=== PATIENT | male | born 2000 | race Caucasian/White ===

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

== ENCOUNTER 2023-04-25 22:09 | Emergency (ER) | payer SELFPAY ==
[2023-04-25 22:10] VITALS: BMI 25.1
--- NOTE | 2023-04-25 22:11 | CT_ITS ---
PROCEDURE INFORMATION: Exam: CT Lumbar Spine Without Contrast Exam date and time: 04/25/2023 10:41 PM Age: 22 years old Clinical indication: Injury or trauma; Fall; Additional info: Fall from 40 feet TECHNIQUE: Imaging protocol: Computed tomography of the lumbar spine without contrast. Radiation optimization: All CT scans at this facility use at least one of these dose optimization techniques: automated exposure control; mA and/or kV adjustment per patient size (includes targeted exams where dose is matched to clinical indication); or iterative reconstruction. REPORTING DATA: Count of CT and Cardiac NM exams in prior 12 months: This patient has received 0 known CTs and 0 known cardiac nuclear medicine studies in the 12 months prior to the current study. COMPARISON: CT THORACIC SPINE WO CON 25/04/2023 22:37 FINDINGS: Bones/joints: No acute fracture. Normal alignment. No significant disc bulge or herniation. No severe spinal canal stenosis. No significant neural foraminal narrowing. Soft tissues: Unremarkable. Other findings: Please see separate report for abdomen/pelvis. IMPRESSION: No acute fracture or malalignment of the lumbar spine.
--- NOTE | 2023-04-25 22:11 | CT_ITS ---
PROCEDURE INFORMATION: Exam: CT Thoracic Spine Without Contrast Exam date and time: 04/25/2023 10:37 PM Age: 22 years old Clinical indication: Injury or trauma; Fall; Additional info: Fall from 40 feet TECHNIQUE: Imaging protocol: Computed tomography of the thoracic spine without contrast. Radiation optimization: All CT scans at this facility use at least one of these dose optimization techniques: automated exposure control; mA and/or kV adjustment per patient size (includes targeted exams where dose is matched to clinical indication); or iterative reconstruction. REPORTING DATA: Count of CT and Cardiac NM exams in prior 12 months: This patient has received 0 known CTs and 0 known cardiac nuclear medicine studies in the 12 months prior to the current study. COMPARISON: CT CERVICAL SPINE WO CON 25/04/2023 22:35 FINDINGS: Bones/joints: Acute T6 superior endplate fracture. Subtle T9 compression fracture. Soft tissues: Unremarkable. Other findings: Please see separate report for CT chest. IMPRESSION: Acute T6 superior endplate fracture. Subtle T9 compression fracture.
--- NOTE | 2023-04-25 22:11 | CT_ITS ---
PROCEDURE INFORMATION: Exam: CT Head Without Contrast Exam date and time: 04/25/2023 10:33 PM Age: 22 years old Clinical indication: Injury or trauma; Fall; Additional info: Fall from 40 feet TECHNIQUE: Imaging protocol: Computed tomography of the head without contrast. Radiation optimization: All CT scans at this facility use at least one of these dose optimization techniques: automated exposure control; mA and/or kV adjustment per patient size (includes targeted exams where dose is matched to clinical indication); or iterative reconstruction. REPORTING DATA: Count of CT and Cardiac NM exams in prior 12 months: This patient has received 0 known CTs and 0 known cardiac nuclear medicine studies in the 12 months prior to the current study. COMPARISON: No relevant prior studies available. FINDINGS: Brain: No acute abnormality. No edema or mass effect. No hemorrhage. Cerebral ventricles: No acute abnormality. No significant ventriculomegaly. Paranasal sinuses: Inferior right maxillary sinus mucous retention cyst. Mastoid air cells: No acute abnormality. No significant mastoid effusion. Bones/joints: No acute osseous abnormality. No acute fracture. Soft tissues: No significant soft tissue abnormalities. IMPRESSION: No evidence of acute intracranial abnormality.
--- NOTE | 2023-04-25 22:11 | CT_ITS ---
PROCEDURE INFORMATION: Exam: CT Abdomen And Pelvis With Contrast Exam date and time: 04/25/2023 10:44 PM Age: 22 years old Clinical indication: Injury or trauma; Fall; Additional info: Fall from 40 feet TECHNIQUE: Imaging protocol: Computed tomography of the abdomen and pelvis with contrast. Radiation optimization: All CT scans at this facility use at least one of these dose optimization techniques: automated exposure control; mA and/or kV adjustment per patient size (includes targeted exams where dose is matched to clinical indication); or iterative reconstruction. Contrast material: ISOVUE; Contrast volume: 75 ml; Contrast route: IV; REPORTING DATA: Count of CT and Cardiac NM exams in prior 12 months: This patient has received 0 known CTs and 0 known cardiac nuclear medicine studies in the 12 months prior to the current study. COMPARISON: CT ABDOMEN PELVIS W CON 05/14/2021 18:08 FINDINGS: Liver: Normal. No mass. Gallbladder and bile ducts: Normal. No calcified stones. No ductal dilation. Pancreas: Normal. No ductal dilation. Spleen: Normal. No splenomegaly. Adrenal glands: Normal. No mass. Kidneys and ureters: Normal. No hydronephrosis. Stomach and bowel: Unremarkable. No obstruction. No mucosal thickening. Appendix: No evidence of appendicitis. Intraperitoneal space: Unremarkable. No free air. No significant fluid collection. Vasculature: Unremarkable. No abdominal aortic aneurysm. Lymph nodes: Unremarkable. No enlarged lymph nodes. Urinary bladder: Unremarkable as visualized. Reproductive: Unremarkable as visualized. Bones/joints: Unremarkable. No acute fracture. Soft tissues: Unremarkable. Other findings: Please see separate report for CT chest. IMPRESSION: No acute intra-abdominal or intrapelvic organ injury.
--- NOTE | 2023-04-25 22:11 | CT_ITS ---
PROCEDURE INFORMATION: Exam: CT Chest With Contrast; Diagnostic Exam date and time: 04/25/2023 10:44 PM Age: 22 years old Clinical indication: Injury or trauma; Fall; Additional info: Fall from 40 feet TECHNIQUE: Imaging protocol: Diagnostic computed tomography of the chest with contrast. Radiation optimization: All CT scans at this facility use at least one of these dose optimization techniques: automated exposure control; mA and/or kV adjustment per patient size (includes targeted exams where dose is matched to clinical indication); or iterative reconstruction. Contrast material: ISOVUE; Contrast volume: 75 ml; Contrast route: IV; REPORTING DATA: Count of CT and Cardiac NM exams in prior 12 months: This patient has received 0 known CTs and 0 known cardiac nuclear medicine studies in the 12 months prior to the current study. COMPARISON: CR XR CHEST PORTABLE 25/04/2023 22:01 FINDINGS: Lungs: Unremarkable. No consolidation. No masses. Pleural spaces: Unremarkable. No pneumothorax. No pleural effusion. Heart: Unremarkable. No cardiomegaly. No pericardial effusion. Lymph nodes: Unremarkable. No enlarged lymph nodes. Vasculature: Unremarkable. No aortic aneurysm. Bones/joints: Unremarkable. No acute fracture. Soft tissues: Unremarkable. Other findings: Please see separate report for abdomen/pelvis. IMPRESSION: No acute intrathoracic organ injury.
--- NOTE | 2023-04-25 22:11 | CT_ITS ---
PROCEDURE INFORMATION: Exam: CT Cervical Spine Without Contrast Exam date and time: 04/25/2023 10:35 PM Age: 22 years old Clinical indication: Injury or trauma; Fall; Additional info: Fall from 40 feet TECHNIQUE: Imaging protocol: Computed tomography of the cervical spine without contrast. Radiation optimization: All CT scans at this facility use at least one of these dose optimization techniques: automated exposure control; mA and/or kV adjustment per patient size (includes targeted exams where dose is matched to clinical indication); or iterative reconstruction. REPORTING DATA: Count of CT and Cardiac NM exams in prior 12 months: This patient has received 0 known CTs and 0 known cardiac nuclear medicine studies in the 12 months prior to the current study. COMPARISON: CT HEAD/BRAIN WO CON 04/25/2023 10:33 PM FINDINGS: Bones/joints: No acute fracture. Normal alignment and vertebral body height. Multilevel findings: No acute findings. No significant spinal stenosis. Lungs: No significant or acute abnormality of the visualized lung apices. Soft tissues: No significant soft tissue abnormalities. IMPRESSION: No evidence of acute fracture or subluxation.
--- NOTE | 2023-04-25 22:12 | XR_ITS ---
PROCEDURE INFORMATION: Exam: XR Chest Exam date and time: 04/25/2023 10:01 PM Age: 22 years old Clinical indication: Injury or trauma; Patient HX: Fall from 40ft TECHNIQUE: Imaging protocol: Radiologic exam of the chest. Views: 1 view. COMPARISON: CT ABDOMEN PELVIS W CON 05/14/2021 18:08 FINDINGS: Lungs: Unremarkable. No consolidation. Pleural spaces: Unremarkable. No pleural effusion. No pneumothorax. Heart/Mediastinum: Unremarkable. No cardiomegaly. Bones/joints: Unremarkable. IMPRESSION: No acute intrathoracic organ injury.
--- NOTE | 2023-04-25 22:12 | XR_ITS ---
PROCEDURE INFORMATION: Exam: XR Pelvis Exam date and time: 04/25/2023 10:46 PM Age: 22 years old Clinical indication: Injury or trauma; Fall TECHNIQUE: Imaging protocol: Radiologic exam of the pelvis. Views: 1 or 2 view. COMPARISON: CT ABDOMEN PELVIS W CON 25/04/2023 22:44 FINDINGS: Bones/joints: No acute fracture or dislocation. Soft tissues: Unremarkable. IMPRESSION: No acute fracture or dislocation.
[2023-04-25 22:14] VITALS: BP 145/63; PULSE 111; RESP 16; TEMP 36.6; O2SAT 98; BMI 22.3
--- NOTE | 2023-04-25 22:14 | PC.NURSE ---
2199 arrived to facility. 2201 trauma alert called re: 40 foot fall 2207:trauma alert cancelled. manual bp 172/76
[2023-04-25 22:20] LABS: Basophils % 0.3 % (0.1-2.0); Eosinophils # 0.1 K/mm3 (0.0-0.4); Eosinophils % 0.5 % (0.1-12.0); Hemoglobin 15.9 g/dL (14.1-18.0); Lymphocytes # 1.6 K/mm3 (0.7-4.5); Lymphocytes % 12.1 % (10-50); Mean Corpuscular HGB Conc 33.8 g/dL (31.8-35.4); Mean Corpuscular Hemoglobin 29.6 pg (27.0-31.2); Mean Corpuscular Volume 87.7 fl (80-94); Mean Platelet Volume 8.7 fl (7.4-10.4); Monocytes # 0.9 K/mm3 (0.1-1.0); Neutrophils # 10.7 K/mm3 (1.8-7.8); Neutrophils % 80.1 % (37.0-80.0); Platelet Count 236 K/mm3 (142-424); Red Blood Count 5.36 M/mm3 (4.60-6.20); Red Cell Distribution Width 12.8 % (11.5-17.5); White Blood Count 13.4 K/mm3 (4.5-13.0)
[2023-04-25 22:23] VITALS: BP 172/76; PULSE 70; RESP 16; TEMP 36.6; O2SAT 98
--- NOTE | 2023-04-25 22:24 | XR_ITS ---
PROCEDURE INFORMATION: Exam: XR Right Wrist Exam date and time: 04/25/2023 10:46 PM Age: 22 years old Clinical indication: Injury or trauma; Fall TECHNIQUE: Imaging protocol: Radiologic exam of the right wrist. Views: 3 or more views. COMPARISON: No relevant prior studies available. FINDINGS: Bones/joints: No acute fracture or dislocation. Soft tissues: Normal. IMPRESSION: No acute fracture or dislocation.
--- NOTE | 2023-04-25 22:24 | XR_ITS ---
PROCEDURE INFORMATION: Exam: XR Left Wrist Exam date and time: 04/25/2023 10:46 PM Age: 22 years old Clinical indication: Injury or trauma; Fall TECHNIQUE: Imaging protocol: Radiologic exam of the left wrist. Views: 3 or more views. COMPARISON: No relevant prior studies available. FINDINGS: Bones/joints: Nondisplaced distal radial fracture with intra-articular component in the radiocarpal joint. Mildly displaced ulnar styloid process fracture. Soft tissues: Hematoma around the fractures. IMPRESSION: 1. Nondisplaced distal radial fracture with intra-articular component in the radiocarpal joint. 2. Mildly displaced ulnar styloid process fracture.
[2023-04-25 22:25] LABS: Chloride 101 mmol/L (98-107); Sodium 139 mmol/L (136-145)
[2023-04-25 22:27] LABS: Blood Urea Nitrogen 16 mg/dl (9-20)
[2023-04-25 22:28] LABS: Alanine Aminotransferase 32 U/L (12-78); Albumin Level 4.6 g/dl (3.5-5.0); Albumin/Globulin Ratio 1.7 (1.1-1.8); Alkaline Phosphatase 58 U/L (38-126); Aspartate Amino Transferase 42 U/L (17-59); Bilirubin,Total 0.4 mg/dl (0.2-1.3); Carbon Dioxide 28 mmol/L (22.0-30.0); Creatinine Clearance Estimated 101 mL/min (50-200); Estimated Glomerular Filt Rate 77 ml/min (>60); GFR (African American) 93 ML/MIN (>60); Globulin 2.7 g/dL (1.3-3.2); Total Protein,Serum 7.3 g/dl (6.3-8.2)
[2023-04-25 22:29] LABS: Calcium 9.5 mg/dl (8.4-10.2); Glucose 99 mg/dl (74-100)
--- NOTE | 2023-04-25 22:32 | PC.NURSE ---
Pt to CT via stretcher
[2023-04-25 22:49] VITALS: BMI 22.3
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
--- NOTE | 2023-04-25 22:57 | PC.NURSE ---
Pt returned from RAD
[2023-04-25 23:00] VITALS: BP 119/59; PULSE 93; O2SAT 99
--- NOTE | 2023-04-25 23:24 | PC.NURSE ---
reports received. new order for SJ on left wrist.
--- NOTE | 2023-04-25 23:35 | PC.NURSE ---
Dr. Esposito at to update pt/family of results
[2023-04-25 23:49] VITALS: BP 120/60; PULSE 88; RESP 16; TEMP 36.6; O2SAT 98
== END 2023-04-25 23:59 | disposition home or self-care (01) ==
PROVIDERS: Emergency Provider Emergency Medicine
DX: S06.9X9A Unspecified intracranial injury with loss of consciousness of unspecified duration, initial encounter (principal); S22.059A Unspecified fracture of T5-T6 vertebra, initial encounter for closed fracture; S22.070A Wedge compression fracture of T9-T10 vertebra, initial encounter for closed fracture; S52.572A Other intraarticular fracture of lower end of left radius, initial encounter for closed fracture; M25.531 Pain in right wrist; W17.89XA Other fall from one level to another, initial encounter
CPT/HCPCS: 70450; 71045; 71260; 72125; 72128; 72131; 72170; 73110; 74177; 80053; 85025; 96374; 99285; Q9967

== ENCOUNTER 2025-06-07 15:48 | Emergency (ER) | payer SELFPAY ==
[2025-06-07 15:50] VITALS: BP 147/71; PULSE 76; RESP 17; TEMP 37; O2SAT 99; BMI 23.0
--- NOTE | 2025-06-07 15:56 | HMH.EDGENADL ---
Discharge Plan Disposition Patient Disposition: Home, Self-Care Condition: Good Prescriptions Prescriptions: No Action No Known Home Medications Activity Restrictions/Add. Instructions Additional Instructions/Restrictions: As we discussed I recommend RICE which is rest ice compression elevation. You may weight-bear as tolerated. I recommend taking 1000 mg of Tylenol alternating every 4 hours with ibuprofen. If you have continued new or worsening signs or symptoms please follow-up with your PCP return to the ER as needed. Clinical Impressions Clinical Impression: Left ankle sprain Qualifiers: Encounter type: initial encounter Involved ligament of ankle: unspecified ligament Qualified Code(s): S93.402A - Sprain of unspecified ligament of left ankle, initial encounter Print Language Print Language: Dominican Discharge ED Provider: Pradeep Quintero General Adult HPI <CAROLYN Jackson - Last Filed: 06/07/25 17:05> General Chief complaint: Extremity Injury, Lower Stated complaint: AO 06/07/25 1030 injury left leg Time Seen by Provider: 06/07/25 15:56 History of Present Illness HPI narrative: Patient presents for evaluation of a left ankle injury. Patient was building a house and was on a cross beam and lost his balance falling approximately 8 feet to the ground. He landed on uneven terrain and rolled his left ankle. That happened around 10 this morning. As the day is gone on he has had more pain and swelling. He denies currently however any loss of motor or sensory and is able to bear weight. He is taking or done nothing to treat it so far. He denies any other injury. Related Data Home Medications ?Medication ?Instructions ?Recorded ?Confirmed No Known Home Medications 04/25/23 04/25/23 Allergies Allergy/AdvReac Type Severity Reaction Status Date / Time No Known Allergies Allergy Verified 06/12/20 16:42 PFS <CAROLYN Jackson - Last Filed: 06/07/25 17:05> [facility] Disclaimer: The information contained in this section may have been updated after the patient was seen, as this information can be updated by other users. Social History Smoking Status: Never smoker alcohol intake: never current occupational status: other Travel in the last 8 weeks?: None Have you lived/traveled outside [place] in past 30 days?: No Contact w/someone who lives/traveled outside US past 30 days?: No Exposure to someone with infectious disease in past 14 days?: No Do you have a fever (greater than 100.4 F or 38 C)?: No Have you tested positive for COVID-19?: No Exposed to someone with COVID-19 in past 14 days?: No Do you have a sore throat?: No Do you have a cough?: No Do you have any weakness?: No Do you have any diarrhea?: No Are you experiencing any unusual bleeding?: No Do you have any muscle aches/pain?: No Do you have any abdominal pain?: No Are you experiencing loss of taste or smell?: No Other Medical History Have you received the Flu Vaccine for this season: No Have you received the Pneumonia Vaccine: No <CAROLYN Jackson - Last Filed: 06/07/25 17:05> ROS Obtained: Yes Systems reviewed as appropriate & no additional complaints except as documented Physical Exam <CAROLYN Jackson - Last Filed: 06/07/25 17:05> General General appearance: alert Respiratory Respiratory exam: Present normal lung sounds bilaterally Cardiovascular Cardiovascular exam: Present regular rate Neurological Exam Neurological exam: Present alert and oriented X3 Medical Decision Making <CAROLYN Jackson - Last Filed: 06/07/25 17:05> Medical Records Medical records reviewed: Yes I reviewed the patient's medical records. Screening: Per USPSTF and CDC recommendations, given the prevalence of disease in our region, it is our hospital?s policy to screen for HIV and viral Hepatitis for all patients aged 18 and over and those with ongoing risk factors. Carmine Inquiry Pt receiving controlled substance: No Vital Signs: 06/07/25 15:50 06/07/25 16:10 06/07/25 16:53 Temperature 98.6 F 98.4 F Temperature Source Oral Pulse Rate 87 66 Pulse Rate [Radial] 76 Respiratory Rate 17 16 18 Blood Pressure 136/68 136/68 Blood Pressure [Right Arm] 147/71 H Blood Pressure Mean [Right Arm] 96 Blood Pressure Source [Right Arm] Automatic Cuff Blood Pressure Position [Right Arm] Sitting 02 Sat by Pulse Oximetry 99 98 Oxygen Delivery Method Room Air Room Air Orders (Tests/Meds): ORDERS Category Date Time Status Ankle XR - Left minimum 3 Views [XR ankle LT min 3V] Exams 06/07/25 15:57 Completed Stat Foot XR left minimum 3 views [XR foot LT min 3V] Stat Exams 06/07/25 15:57 Completed Tibia/fibula XR left 2 views [XR tibia fibula LT 2V] Exams 06/07/25 15:57 Completed Stat Medical Decision Narrative: In summary patient is a 24-year-old male who presents to the emergency department for evaluation of left ankle injury. Patient is hemodynamically stable upon arrival, afebrile. Physical exam is remarkable for marked swelling at the lateral malleolus and ecchymosis. However patient has no palpable fomites. He is neurovascular intact distally. Pulses are palpable and marked by myself at the DP and PT.. Differential diagnosis includes sprain versus fracture. Initial workup will be conducted with plain x-rays of the tib-fib ankle and foot. Initial interventions were offered however patient declined. Initial workup reviewed by me for interpretation shows no evidence of acute bony abnormality prior to radiology read. Please see final read performed interpretation. Upon repeat evaluation patient remains able to bear weight. Given this patient is appropriate for discharge with instructions for rest ice compression elevation. I have applied an Franky wrap to his ankle. I recommended that he take Tylenol alternating with Motrin for pain and swelling and symptoms. If he has any worsening signs or symptoms he can follow-up with PCP return to the ER as needed. <Pradeep Quintero, - Last Filed: 06/10/25 07:23> Vital Signs: 06/07/25 15:50 06/07/25 16:10 06/07/25 16:53 Temperature 98.6 F 98.4 F Temperature Source Oral Pulse Rate 87 66 Pulse Rate [Radial] 76 Respiratory Rate 17 16 18 Blood Pressure 136/68 136/68 Blood Pressure [Right Arm] 147/71 H Blood Pressure Mean [Right Arm] 96 Blood Pressure Source [Right Arm] Automatic Cuff Blood Pressure Position [Right Arm] Sitting 02 Sat by Pulse Oximetry 99 98 Oxygen Delivery Method Room Air Room Air Orders (Tests/Meds): ORDERS Category Date Time Status Ankle XR - Left minimum 3 Views [XR ankle LT min 3V] Exams 06/07/25 15:57 Completed Stat Foot XR left minimum 3 views [XR foot LT min 3V] Stat Exams 06/07/25 15:57 Completed Tibia/fibula XR left 2 views [XR tibia fibula LT 2V] Exams 06/07/25 15:57 Completed Stat Medical Decision Narrative: In summary patient is a 24-year-old male who presents to the emergency department for evaluation of left ankle injury. Patient is hemodynamically stable upon arrival, afebrile. Physical exam is remarkable for marked swelling at the lateral malleolus and ecchymosis. However patient has no palpable fomites. He is neurovascular intact distally. Pulses are palpable and marked by myself at the DP and PT.. Differential diagnosis includes sprain versus fracture. Initial workup will be conducted with plain x-rays of the tib-fib ankle and foot. Initial interventions were offered however patient declined. Initial workup reviewed by me for interpretation shows no evidence of acute bony abnormality prior to radiology read. Please see final read performed interpretation. Upon repeat evaluation patient remains able to bear weight. Given this patient is appropriate for discharge with instructions for rest ice compression elevation. I have applied an Franky wrap to his ankle. I recommended that he take Tylenol alternating with Motrin for pain and swelling and symptoms. If he has any worsening signs or symptoms he can follow-up with PCP return to the ER as needed. I was consulted by the GUNNER, and we discussed the complexity of problems being addressed. I approved the treatment and management plan for this patient's care in the emergency department, thus performing a substantive portion of the medical decision making. I did personally evaluate this patient and obtain independent history. This gentleman is a very fit, very active 24 year old male of the [employer] [facility]. He was working on building a house and was standing on a wood beam suspended several feet in the air whe he fell down to the ground. He landed directly on his feet and experienced immediate pain in the left ankle. He insists that he landed directly on his feet, and then sat down. He did not hit his head, lose consciousness, or land and roll. After landing and experiencing pain in the ankle he then proceeded to lay down gently on the ground. On examination he had fusiform edema of the left ankle with tenderness over the malleoli. DP and PT pulses are strong. Normal sensation in all terminal nerve distributions. Intact motor function distal to the site of injury. His body otherwise is asymptomatic. No evidence of head trauma. C, T, and L spines are nontender. Chest and abdomen are nontender. No traumatic injuries to the right lower extremity and pelvis is stable. We did obtain XR's of the lower extremity to exclude ankle and foot fracture, as well as maissonnueve pattern of injury to the proximal fibula. All images were personally interpreted as negative. Based on these findings, my suspicion is that he likely sprained the ankle. We ultimately opted to place an franky wrap on the ankle and instructed him that he could weight bare as tolerated. All questions were answered and all parties were agreeable with decision to discharge home. Pradeep Quintero, DO Critical Care <CAROLYN Jackson - Last Filed: 06/07/25 17:05> Critical Care Time Critical Care Time: No
--- NOTE | 2025-06-07 15:57 | XR_ITS ---
PROCEDURE INFORMATION: Exam: XR Left Foot Exam date and time: 06/07/2025 4:21 PM Age: 24 years old Clinical indication: Injury or trauma; Fall; Blunt trauma; Foot; Left; Additional info: Fell 8 feet onto his feet TECHNIQUE: Imaging protocol: Radiologic exam of the left foot. Views: 3 or more views. COMPARISON: CR XR FOOT LT MIN 3V 06/12/2020 4:58 PM FINDINGS: Bones/joints: Normal. No acute fracture identified. Soft tissues: Normal. IMPRESSION: No acute findings.
--- NOTE | 2025-06-07 15:57 | XR_ITS ---
PROCEDURE INFORMATION: Exam: XR Left Ankle Exam date and time: 06/07/2025 4:18 PM Age: 24 years old Clinical indication: Injury or trauma; Fall; Blunt trauma; Ankle; Left; Additional info: Fell 8 feet onto his feet TECHNIQUE: Imaging protocol: Radiologic exam of the left ankle. Views: 3 or more views. COMPARISON: CR XR ANKLE LT MIN 3V 06/12/2020 4:58 PM FINDINGS: Bones/joints: No acute fracture identified. Soft tissues: Soft tissue swelling laterally. IMPRESSION: No acute fracture.
--- NOTE | 2025-06-07 15:57 | XR_ITS ---
PROCEDURE INFORMATION: Exam: XR Left Tibia and Fibula Exam date and time: 06/07/2025 4:19 PM Age: 24 years old Clinical indication: Injury or trauma; Fall; Blunt trauma; Lower leg; Left; Additional info: Fell 8 feet on his feet TECHNIQUE: Imaging protocol: Radiologic exam of the left tibia and fibula. Views: 2 views. COMPARISON: CR XR TIBIA FIBULA LT 2V 06/07/2025 4:19 PM FINDINGS: Bones/joints: Normal. No acute fracture identified. Soft tissues: Normal. IMPRESSION: No acute findings.
[2025-06-07 16:10] VITALS: BP 136/68; PULSE 87; RESP 16; O2SAT 98
[2025-06-07 16:53] VITALS: BP 136/68; PULSE 66; RESP 18; TEMP 36.9; O2SAT 99
== END 2025-06-07 16:53 | disposition home or self-care (01) ==
PROVIDERS: Emergency Provider Student in an Organized Health Care Education/Training Program
DX: S93.402A Sprain of unspecified ligament of left ankle, initial encounter (principal); W19.XXXA Unspecified fall, initial encounter
CPT/HCPCS: 73590; 73610; 73630; 99284